=== PATIENT | male | born 1985 | race Hispanic/Latino ===

== ENCOUNTER 2016-11-28 23:43 | Emergency (ER) | payer MEDICAID, OTHER ==
[2016-11-29 00:09] VITALS: BMI 29.0
--- NOTE | 2016-11-29 00:22 | ED PDOC ---
Arrival/HPI - General Chief Complaint: Abdominal Pain Time Seen by Provider: 11/28/16 23:55 Historian: Patient - History of Present Illness Narrative History of Present Illness (Text): 11/29/16 00:17 Kalpesh Walker is a 31 year old male, with a history of opiate dependence, presents to the emergency department complaining of epigastric pain for past 1 week. Reports that pain is associated with diarrhea and non-bloody, non-bilious episodes of vomiting. States he was evaluated at [facility] last week. As per patient , ultrasound of abdomen done at that time was negative for any pathologies. Denies fever, chills, headache, dizziness, chest pain, shortness of breath, urinary symptoms or any other complaints at this time. Time/Duration: 1 week Symptom Onset: Gradual Symptom Course: Unchanged Severity Level: Mild Activities at Onset: Light Past Medical History - Provider Review Nursing Documentation Reviewed: Yes - Cardiac Hx Cardiac Disorders: No Hx Hypertension: No - Pulmonary Hx Respiratory Disorders: No Hx Tuberculosis: No - Neurological Hx Neurological Disorder: No Hx Seizures: No - HEENT Hx HEENT Disorder: No - Renal Hx Renal Disorder: No - Endocrine/Metabolic Hx Endocrine Disorders: No - Hematological/Oncological Hx Blood Disorders: No - Integumentary Hx Dermatological Disorder: No - Musculoskeletal/Rheumatological Hx Musculoskeletal Disorders: No Hx Falls: No - Gastrointestinal Hx Gastrointestinal Disorders: No - Genitourinary/Gynecological Hx Genitourinary Disorders: No Hx Sexually Transmitted Diseases: No - Psychiatric Hx Depression: Yes Hx Substance Use: No - Surgical History Other/Comment: left arm abcess drained - Anesthesia Hx Anesthesia: Yes Hx Anesthesia Reactions: No Hx Malignant Hyperthermia: No - Suicidal Assessment Feels Threatened In Home Enviroment: No Family/Social History - Physician Review Nursing Documentation Reviewed: Yes Family/Social History: No Known Family HX Smoking Status: Current Some Days Smoker Hx Alcohol Use: No Hx Substance Use: No Substance used: heroin Hx Substance Use Treatment: No Allergies/Home Meds Allergies/Adverse Reactions: Allergies Sulfa (Sulfonamide Antibiotics) Allergy (Verified 11/29/16 00:10) RASH Review of Systems - Physician Review All systems were reviewed & negative as marked: Yes - Review of Systems Constitutional: Normal. absent: Fatigue, Fevers Respiratory: Normal. absent: SOB, Cough Cardiovascular: Normal. absent: Chest Pain, Palpitations Gastrointestinal: Abdominal Pain, Nausea, Vomiting Genitourinary Male: Normal. absent: Dysuria Neurological: Normal. absent: Headache, Dizziness Psychiatric: Normal Physical Exam Vital Signs Reviewed: Yes Vital Signs Temp Pulse Resp BP Pulse Ox 11/29/16 03:19 98.2 F 78 17 138/78 99 11/29/16 00:10 98.1 F 103 H 16 141/85 95 11/29/16 00:08 98.1 F 103 H 16 141/85 95 Temperature: Afebrile Blood Pressure: Normal Pulse: Tachycardic Respiratory Rate: Normal Appearance: Positive for: Well-Appearing, Non-Toxic, Comfortable Pain Distress: None Mental Status: Positive for: Alert and Oriented X 3 - Systems Exam Head: Present: Atraumatic, Normocephalic Pupils: Present: PERRL Extroacular Muscles: Present: EOMI Conjunctiva: Present: Normal Neck: Present: Normal Range of Motion Respiratory/Chest: Present: Clear to Auscultation, Good Air Exchange. No: Respiratory Distress, Accessory Muscle Use Cardiovascular: Present: Regular Rate and Rhythm, Normal S1, S2. No: Murmurs Abdomen: Present: Normal Bowel Sounds. No: Tenderness, Distention, Peritoneal Signs Upper Extremity: Present: Normal Inspection. No: Cyanosis, Edema Lower Extremity: Present: Normal Inspection. No: Edema Neurological: Present: GCS=15, CN II-XII Intact, Speech Normal, Motor Func Grossly Intact, Normal Sensory Function Skin: Present: Warm, Dry, Normal Color. No: Rashes Psychiatric: Present: Alert, Oriented x 3, Normal Insight, Normal Concentration Medical Decision Making ED Course and Treatment: 11/29/16 00:23 Impression: a 31 year old male who presents to the emergency department for evaluation of epigastric pain associated with nausea and diarrhea for 1 week. Plan: -- Labs -- US abdomen -- Urinalysis -- Reassess and disposition Progress Notes: 11/29/16 03:21 US abdomen results reviewed: IMPRESSION: Gallbladder wall is minimally thickened, most likely secondary to gallbladder contraction. No evidence of gallstones, pericholecystic fluid, or a positive sonographic Piña' s sign. Recommend clinical correlation. Mild hepatomegaly. Nonvisualization of the pancreas. See above for remaining findings. - Lab Interpretations Lab Results: 11/29/16 01:50 11/29/16 01:50 Lab Results 11/29/16 01:50: WBC 12.0 H, RBC 4.46, Hgb 12.8 L, Hct 36.9 L, MCV 82.7, MCH 28.7 , MCHC 34.7, RDW 14.1, Plt Count 301, MPV 9.5, Sodium 139, Potassium 3.9, Chloride 101, Carbon Dioxide 28, Anion Gap 14, BUN 18, Creatinine 0.8, Est GFR ( Amer) > 60, Est GFR (Non-Af Amer) > 60, Random Glucose 91, Calcium 9.4, Total Bilirubin 0.4, AST 39, ALT 48, Alkaline Phosphatase 68, Total Protein 6.9 , Albumin 4.0, Globulin 2.9, Albumin/Globulin Ratio 1.4, Lipase 60 11/29/16 01:00: Urine Color Yellow, Urine Appearance Clear, Urine pH 6.0, Ur Specific [place] >= 1.030, Urine Protein Negative, Urine Glucose (UA) Negative, Urine Ketones Negative, Urine Blood Negative, Urine Nitrate Negative, Urine Bilirubin Negative, Urine Urobilinogen 0.2, Ur Leukocyte Esterase Negative I have reviewed the lab results: Yes - RAD Interpretation Narrative RAD Interpretations (Text): EXAM: US Abdomen Complete. FINDINGS: Gallbladder: Appears contracted. Wall measures 3.6 mm in thickness (normal less than 3 mm). No gallstones seen. No evidence of pericholecystic fluid. Reportedly negative sonographic Piña's sign. Common bile duct: Does not appear abnormally dilated, measuring less than 6 mm in diameter. Liver: Mildly enlarged, measuring 18 cm in length (normal less than 16 cm). Otherwise within normal limits in appearance. Normal flow seen in the main portal vein on color and Doppler imaging. Pancreas: Obscured by bowel gas. Right kidney: Within normal limits in appearance. Measures 11.2 cm in length. No evidence of hydronephrosis. Left kidney: Within normal limits in appearance. Measures 11.8 cm in length. No evidence of hydronephrosis. Spleen: At the upper limits of normal in size, measuring 12.5 cm in length. IMPRESSION: Gallbladder wall is minimally thickened, most likely secondary to gallbladder contraction. No evidence of gallstones, pericholecystic fluid, or a positive sonographic Piña' s sign. Recommend clinical correlation. Mild hepatomegaly. Nonvisualization of the pancreas. See above for remaining findings. Radiology Orders: 11/29/16 00:24 ABDOMEN COMPLETE [US] Stat Residential Driver: Radiologist - Medication Orders Current Medication Orders: Sodium Chloride (Sodium Chloride 0.9%) 1,000 mls @ 100 mls/hr IV .Q10H ANNETTE Last Admin: 11/29/16 02:22 Dose: 100 MLS/HR eMAR Start Stop Document 11/29/16 02:22 [facility] (Rec: 11/29/16 02:22 [id number]) Intravenous Solution Start Date 11/29/16 Start Time 02:22 Discontinued Medications Famotidine (Pepcid) 20 mg IVP STAT STA Stop: 11/29/16 00:25 Last Admin: 11/29/16 02:23 Dose: 20 MG IVP Administration Document 11/29/16 02:23 RJ (Rec: 11/29/16 02:23 [id number]) Charges for Administration # of IVP Administrations 1 Ketorolac Tromethamine (Toradol) 30 mg IVP ONCE ONE Stop: 11/29/16 00:25 Last Admin: 11/29/16 02:23 Dose: 30 MG IVP Administration Document 11/29/16 02:23 RJ (Rec: 11/29/16 02:23 [id number]) Charges for Administration # of IVP Administrations 1 Ondansetron HCl (Zofran Inj) 4 mg IVP ONCE ONE Stop: 11/29/16 00:25 Last Admin: 11/29/16 02:22 Dose: 4 MG IVP Administration Document 11/29/16 02:22 RJ (Rec: 11/29/16 02:23 [id number]) Charges for Administration # of IVP Administrations 1 - Scribe Statement The provider has reviewed the documentation as recorded by the Sumanth Quinones Provider Attestation: All medical record entries made by the Scribcapri were at my direction and personally dictated by me. I have reviewed the chart and agree that the record accurately reflects my personal performance of the history, physical exam, medical decision making, and the department course for this patient. I have also personally directed, reviewed, and agree with the discharge instructions and disposition. Disposition/Present on Arrival - Present on Arrival Any Indicators Present on Arrival: No History of DVT/PE: No History of Uncontrolled Diabetes: No Urinary Catheter: No History of Decub. Ulcer: No History Surgical Site Infection Following: None - Disposition Have Diagnosis and Disposition been Completed?: Yes Diagnosis: Gastroenteritis Disposition: HOME/ ROUTINE Disposition Time: 04:59 Patient Plan: Discharge Condition: GOOD Discharge Instructions (ExitCare): Gastroenteritis (ED) Additional Instructions: Take meds as prescribed/drink plenty of liquids/follow up with your doctor this week Prescriptions: Ondansetron [Zofran Odt] 4 mg PO Q6 PRN #12 odt PRN Reason: Nausea/Vomiting
[2016-11-29] MEDS ORDERED: Sodium Chloride 0.9% 1,000 ML IV SCH (00:30)
--- NOTE | 2016-11-29 01:19 | US ---
EXAM: US Abdomen Complete. CLINICAL HISTORY: 31 years old, male; Pain; Abdominal pain; Generalized; Additional info: Upper abdominal pain TECHNIQUE: Real-time ultrasound of the abdomen (complete) with image documentation. EXAM DATE/TIME: 11/29/2016 12:24 AM COMPARISON: No relevant prior studies available. FINDINGS: Gallbladder: Appears contracted. Wall measures 3.6 mm in thickness (normal less than 3 mm). No gallstones seen. No evidence of pericholecystic fluid. Reportedly negative sonographic Piña's sign. Common bile duct: Does not appear abnormally dilated, measuring less than 6 mm in diameter. Liver: Mildly enlarged, measuring 18 cm in length (normal less than 16 cm). Otherwise within normal limits in appearance. Normal flow seen in the main portal vein on color and Doppler imaging. Pancreas: Obscured by bowel gas. Right kidney: Within normal limits in appearance. Measures 11.2 cm in length. No evidence of hydronephrosis. Left kidney: Within normal limits in appearance. Measures 11.8 cm in length. No evidence of hydronephrosis. Spleen: At the upper limits of normal in size, measuring 12.5 cm in length. IMPRESSION: Gallbladder wall is minimally thickened, most likely secondary to gallbladder contraction. No evidence of gallstones, pericholecystic fluid, or a positive sonographic Piña's sign. Recommend clinical correlation. Mild hepatomegaly. Nonvisualization of the pancreas. See above for remaining findings.
[2016-11-29 01:27] LABS: URINE BILIRUBIN NEGATIVE (NEGATIVE); URINE BLOOD NEGATIVE (NEGATIVE); URINE GLUCOSE (UA) NEGATIVE (NEGATIVE); URINE KETONE NEGATIVE (NEGATIVE); URINE LEUKOCYTE ESTERASE NEGATIVE Leu/uL (NEGATIVE); URINE PROTEIN NEGATIVE mg/dL (<30 mg/dL); URINE UROBILINOGEN 0.2 E.U./dL (<1 E.U./dL)
[2016-11-29 01:28] LABS: URINE APPEARANCE CLEAR (CLEAR); URINE COLOR YELLOW (YELLOW)
[2016-11-29 02:32] LABS: ALB/GLOB RATIO 1.4 (1.1-1.8); ALKALINE PHOSPHATASE 68 U/L (38-133); ALT/SGPT 48 U/L (7-56); AST/SGOT 39 U/L (15-59); BILIRUBIN,TOTAL 0.4 mg/dL (0.2-1.3); BLOOD UREA NITROGEN 18 mg/dL (7-21); CALCIUM 9.4 mg/dL (8.4-10.5); CARBON DIOXIDE 28 mmol/L (21-33); CHLORIDE 101 mmol/L (95-110); GFR AFRICAN-AMERICAN > 60; GLUCOSE,RANDOM 91 mg/dL (70-110); LIPASE 60 U/L (23-300); POTASSIUM 3.9 mmol/L (3.6-5.0); SODIUM 139 mmol/L (132-148); TOTAL PROTEIN 6.9 g/dL (5.8-8.3)
[2016-11-29 02:48] LABS: HEMATOCRIT 36.9 % (42.0-52.0); MEAN CELL VOLUME 82.7 fL (80.0-105.0); MEAN CORPUSCULAR HEMOGLOBIN 28.7 pg (25.0-35.0); MEAN CORPUSCULAR HGB CONC 34.7 g/dl (31.0-37.0); MEAN PLATELET VOLUME 9.5 fl (7.0-11.0); RED CELL DISTRIBUTION WIDTH 14.1 % (11.5-14.5)
[2016-11-29 03:19] VITALS: BP 138/78; PULSE 78; RESP 17; TEMP 98.2; O2SAT 99
== END 2016-11-29 05:11 | disposition home or self-care (01) ==
LOC: ED 23:43
DX: K52.9 Noninfective gastroenteritis and colitis, unspecified (principal)
CPT/HCPCS: 76700; 80053; 81003; 83690; 85027; 96374; 96375; 99283; J1885; J2405; J7040